=== PATIENT | female | born 1930 | race Caucasian/White ===

== ENCOUNTER 2017-01-29 17:44 | Emergency (ER) | payer MEDICARE, OTHER ==
[~2017-01-29 17:44] MED LIST: ADVAIR IH; BRIMONIDINE OU; CARAFATE1 GM PO; CIPRO500 MG PO; DELTASONE DPS10 MG PO; DUONEB DPS3 ML IH; FLONASE 0.05% D16 GM NS; FUROSEMIDE40 MG PO; HYDROCHLOROTHIA25 MG PO; MAG-OX400 MG PO; MUCINEX600 MG PO; PREDNISONE 40 MG PO; PREDNISONE20 MG PO; PRILOSEC 20 MG PO; PROCARDIA PO; RESTASIS1 EACH OU; SINGULAIR10 MG PO; TIMOLOL OU
--- NOTE | 2017-01-30 07:02 | ER ---
ADMIT: 01/29/2017 RM/LOC: ER [facility] MR#: [id number] [address] [id number] ABRAHAN RODRIGESROSAURA Nolasco [address] [place] [address] Emergency Room Report SEX: F AGE: 86 : 1930 DATE: 01/29/2017 The patient is an 86-year-old female, who states she developed right retro- orbital headache early this morning, causing her to wake up and take ibuprofen, which she has been on 2 other occasions today. Noted that she could not see approximately noon from her right eye. Did not report until approximately 5:30 this evening. Exam remarkable for nontoxic, afebrile female with tender right globe, tonic pupil, slightly irregular with shallow angle. No light perception that she can describe. Visual acuity 20/20 in the left eye. CT shows air-fluid levels right maxillary and left frontal. No other abnormalities noted. WBC 11.8, CRP 1.16, glucose 130. UA; 2+ leukocyte esterase, 21 WBCs, 2 RBCs, culture pending. Tonometry 45 to 49 repeatedly. Funduscopic exam indeterminate. Discussed case with Dr. Butler and Rodrigo. Dr. Butler evaluated in department. Made multiple recommendations for glaucoma. The patient was treated prior to Dr. Butler' arrival with Timoptic and dorzolamide. Discharged with Augmentin 875 b.i.d. #20. Follow up Dr. Wallace on Tuesday. Rakesh Dixon MD/ milan JOB #: [id number] CC: Rancho Johnson MD, Attending Physician Amando Wallace MD, Family Physician MD Dariana Padgett MD Michele L Narrows, MD
--- NOTE | 2017-02-01 09:07 | CO ---
ADMIT: 01/29/2017 RM/LOC: ER [facility] MR#: [id number] [address] [id number] MIKE RODRIGES [address] [place] [address] Consultation SEX: F AGE: 86 : 1930 DATE OF CONSULTATION: 01/29/2017 ATTENDING PHYSICIAN: Rancho Johnson MD CONSULTING PHYSICIAN: Dariana Butler MD HISTORY OF PRESENT ILLNESS: This patient is an 86-year-old, woman who was awakened this morning at 3:30 in the morning with eye pain on the right. She took some ibuprofen and went back to bed and her eye felt better, but continued to be painful. Then, when she noticed later today that her vision was poor, she presented to the emergency room. Her pressure was noted to be 46 by Terry-Pen by the emergency room doctor. She has had tearing, but no mattering from the eye. She said she has had a toothache on the right for the last couple of days, but she does tend to have to tooth aches that go back and forth from one side to the other. She denies any brow pain or previous pain this week and she did not notice any decreased vision until this afternoon, but she did not really check the right eye. REVIEW OF SYSTEMS: Negative for any urinary tract symptoms. She denies fever or chills. She has felt good and played bridge yesterday. 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 She did have cataract surgery in both eyes, which according to Dr. Wallace, who called while I was here in the ER. 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 She had an irregular pupil on the right, but no other complications that she could think of and no history of retained lens fragments that she recalled. She did well vision vyas until today. PAST MEDICAL HISTORY: Positive for asthma, hypertension, and cholelithiasis. She has also had knee replacement in one knee. ALLERGIES: SHE HAS NO KNOWN ALLERGIES, ALTHOUGH SHE SAYS SHE BECOMES NAUSEATED WITH HER DILATING DROPS. MEDICATIONS: 1. Combigan in both eyes twice a day. Her last dose was at 8:30 this morning. 2. She has Restasis twice a day in both eyes. 3. Nifedical. 4. Hydrochlorothiazide. 5. Advair. 6. Prilosec. 7. Gabapentin. 8. Montelukast. 9. Fluticasone nasal spray. 10.Aspirin. 11.Magnesium. 12.Fish oil. PHYSICAL EXAMINATION: On ocular examination, her visual acuity is count fingers at 6 inches in the right eye and 20/25 at the left eye with a near ADMIT: 01/29/2017 RM/LOC: [facility] MR#: [id number] [address] [place] [id number] MIKE RODRIGES [address] [place] [address] Consultation SEX: F AGE: 86 : 1930 card. Her pupils are 4 mm on the right and 5 mm on the left. Her right pupil is irregular, her left is round; she has no reaction to light on the right and 2+ reaction to light on the left. In the left eye, she has a 2+ reverse afferent pupillary defect. Her visual field is constricted on the right and full on the left. Motility shows orthophoria with full ductions and versions. She has dermatochalasis bilaterally with some mild erythema of the lids on the right, but no proptosis. Her pressures by applanation were 50 in the right eye, 16 in the left eye. Later, by Terry-Pen 40 and 14 after the ER doctor put in dorzolamide and we had her use her Combigan. I dilated her with mydriacyl 1% and phenylephrine 2 1/2 % with punctal occlusion and lid closure. the view was poor on the right, but grossly normal with clear vitreous. On the left the CDR was 0.6. The macula was normal with a normal peripheral retina. After she was dilated, it was apparent that she had some keratic precipitates on the lens and some debris. Her chamber did seem to deepen on the right after dilation. Her pressures after she had oral Diamox, Combigan and then dorzolamide, went down to 30 and 13 by Terry-Pen, 34 and 14 by applanation. On slit lamp examination, she had 3+ injection of the conjunctiva on the right, clear on the left. She had 3+ edema with debris on the endothelium. There were keratic precipitates on the endothelium and microcystic edema, the left is clear. The anterior chamber showed 4+ fluorescein flare, 1+ cell on the right. On the left, the anterior chamber is deep and quiet. The right iris, it is irregular and peaked inferiorly with what appears to be peripheral synechiae and some KPs on the lens as well as some debris on the lens. The left iris is slightly irregular, but otherwise normal, and the posterior chamber lenses are in good position in both eyes. I attempted gonioscopy before dilation but due to the corneal edema, I had a very poor view of the angles on the right. The left angles were 3-4 + open with no PAS. IMPRESSION: 1. Acute iritis, right eye of unknown etiology, I doubt endogenous as she has no evidence or symptoms of infection and does not appear to be in any way septic. Herpes simplex virus is possible, but no corneal changes except the corneal edema from the high-pressure. She has no history of iritis in the past. She apparently does not have a history of retained lens fragments, and it has been years since her surgery, so it is doubtful that this would flare up at this time. She has pseudoexfoliation syndrome with loose zonules therefore reverse pupillary block is possible and the angles did appear to deepen after dilation. 2. 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 ADMIT: 01/29/2017 RM/LOC: ER [facility] MR#: [id number] [facility] [address] [place] [id number] ABRAHAN RODRIGESROSAURA Nolasco [address] [place] [address] Consultation SEX: F AGE: 86 : 1930 PLAN: Dorzolamide one drop was given in the emergency room and then it will be used every 8 hours after. Combigan one drop was used in the emergency room in both eyes and will be used every 12 hours. We gave her Diamox 500 mg p.o. now and she will be using 500 mg sequels every 12 hours for two doses, tomorrow morning and tomorrow evening. I also placed her on prednisolone acetate every 2 hours while awake and Cyclogyl twice a day. I have instructed her to call me if she has any problems tomorrow as in recurrence of her pain or decreased vision. Otherwise, she should follow up with Dr. Wallace on Tuesday morning. I did check her intra-ocular pressure after the oral Diamox, topical dorzolamide, and Combigan, and her pressures had gone down to 30 and 13 by Terry-Pen, 34 and 14 by applanation and she was no longer having pain. She also said that her vision was better. Dariana Butler MD/ milan JOB #: [id number] CC: Rancho Johnson MD, Attending Physician Amando Wallace MD, Family Physician
[2017-06-18] MEDS ORDERED: ADVAIR DIS1 PUFF/DO2 IH (14:10)
[2017-06-18] MEDS ORDERED: LEVAQUIN DPS750 MG PO (14:10)
[2017-06-18] MEDS ORDERED: DUONEB DPS3 ML IH ×2 (14:10→14:16)
[2017-06-18] MEDS ORDERED: COSOPT PLUS DPS10 ML OD (14:11)
[2017-06-18] MEDS ORDERED: COMBIGAN5 ML OU (14:11)
[2017-06-18] MEDS ORDERED: NEURONTIN DPS100 MG PO (14:11)
[2017-06-18] MEDS ORDERED: HYDRODIURIL-DPS50 MG PO (14:12)
[2017-06-18] MEDS ORDERED: CYCLOGYL15 ML OU (14:12)
[2017-06-18] MEDS ORDERED: PROCARDIA XL DP30 MG PO (14:12)
[2017-06-18] MEDS ORDERED: ASPIRIN EC81 MG PO (14:13)
[2017-06-18] MEDS ORDERED: PRILOSEC DPS20 MG PO (14:13)
[2017-06-18] MEDS ORDERED: ADVIL DPS200 MG PO (14:13)
[2017-06-18] MEDS ORDERED: PROAIR RESPICL90 MCG IH (14:13)
[2017-06-18] MEDS ORDERED: FISH OIL 1,2001 EACH PO (14:14)
[2017-06-18] MEDS ORDERED: MULTIPLE VITAM1 EACH PO (14:14)
[2017-06-18] MEDS ORDERED: CALTRATE-600 W600 MG PO (14:14)
[2017-06-18] MEDS ORDERED: MAG-OX400 MG PO (14:14)
[2017-06-18] MEDS ORDERED: CLARITIN-D 241 EACH PO (14:15)
[2017-06-18] MEDS ORDERED: FLONASE 0.05% D16 GM NS (14:15)
[2017-06-18] MEDS ORDERED: MEDROL DOSEP4 MG/TAB PO (14:15)
[2017-06-18] MEDS ORDERED: MAALOX DPS30 ML PO (14:16)
[2017-06-18] MEDS ORDERED: TYLENOL325 MG PO (14:16)
[2017-06-18] MEDS ORDERED: MOTRIN-DPS400 MG PO (14:16)
== END 2017-01-29 22:50 | disposition home or self-care (01) ==
LOC: ER 17:44
DX: H20.00 Unspecified acute and subacute iridocyclitis (principal); H40.9 Unspecified glaucoma; J32.9 Chronic sinusitis, unspecified; I10 Essential (primary) hypertension; J45.909 Unspecified asthma, uncomplicated; Z90.89 Acquired absence of other organs; Z90.710 Acquired absence of both cervix and uterus; Z79.01 Long term (current) use of anticoagulants; Z79.899 Other long term (current) drug therapy